=== PATIENT | male | born 1990 | race Caucasian/White ===

== ENCOUNTER 2018-03-30 22:16 | Emergency (ER) | payer SELFPAY ==
[~2018-03-30] VITALS: Ht 180.3 cm; Wt 72.6 kg
[2018-03-30 22:23] VITALS: BP_SYST 147
--- NOTE | 2018-03-30 22:46 | NUR ---
Pt states he wants to LWBS/.
== END 2018-03-30 22:46 | disposition left against medical advice (07) ==
LOC: SED 22:16
DX: R06.02 Shortness of breath (principal); R20.2 Paresthesia of skin; Z53.21 Procedure and treatment not carried out due to patient leaving prior to being seen by health care provider